=== PATIENT | female | born 1940 | race Caucasian/White ===

== ENCOUNTER → 2017-05-16 | Outpatient (CLI) | payer MEDICARE, BC ==
[2006-06-13 08:55] VITALS: TEMP 97.2
[~2017-05-16] MED LIST: NORCO 325 MG-51 TAB PO; [UNRECOGNIZED DRUG - REMARK]; cholesterol
== END ==
LOC: MC.RAD 13:20
DX: Z12.31 Encounter for screening mammogram for malignant neoplasm of breast (principal)

== ENCOUNTER 2018-05-31 14:45 | Outpatient (RCR) | payer MEDICARE, BC ==
[2006-06-13 08:55] VITALS: TEMP 97.2
== END 2018-06-25 | disposition home or self-care (01) ==
LOC: WSPT
DX: R26.81 Unsteadiness on feet (principal); Z79.82 Long term (current) use of aspirin; Z79.899 Other long term (current) drug therapy
CPT/HCPCS: G8978-GP; G8979-GP

== ENCOUNTER → 2018-06-13 | Outpatient (CLI) | payer MEDICARE, BC ==
[2006-06-13 08:55] VITALS: TEMP 97.2
== END ==
LOC: MC.RAD 11:26
DX: Z12.31 Encounter for screening mammogram for malignant neoplasm of breast (principal)

== ENCOUNTER → 2019-07-05 | Outpatient (CLI) | payer MEDICARE, BC ==
[2006-06-13 08:55] VITALS: TEMP 97.2
== END ==
LOC: MC.RAD 10:35
DX: Z12.31 Encounter for screening mammogram for malignant neoplasm of breast (principal)

== ENCOUNTER → 2020-07-06 | Outpatient (CLI) | payer MEDICARE, BC ==
[2006-06-13 08:55] VITALS: TEMP 97.2
== END ==
LOC: MC.RAD 12:54
DX: Z12.31 Encounter for screening mammogram for malignant neoplasm of breast (principal)

== ENCOUNTER 2020-12-06 12:20 | Emergency (ER) | payer MEDICARE, BC ==
[~2020-12-06] VITALS: Ht 160 cm; Wt 47.7 kg
[~2020-12-06 12:20] MED LIST changes: +ALEVE LIQCAPS PO; +AVAPRO TAB150 MG/TAB PO; +ERGOCALCIFER50000 IU PO; +PROTONIX 40MG T40 MG PO; +TUMS EXTRA STR750 MG PO; +TYLENOL 500MG500 MG PO; +VESICARE 5MG5 MG PO
[2020-12-06 12:34] VITALS: TEMP 97.6
[2020-12-06 13:28] LABS: BASO # 0.1 (0.0-0.2); BASO % 1.3 % (0.0-2.0); EOS % 0.5 % (0-4.0); GRAN # 6.7 (1.4-6.5); GRAN % 78.5 % (42.2-75.2); HEMATOCRIT 39.7 % (37.0-47.0); HEMOGLOBIN 13.5 g/dl (12.5-16.0); LYMPH # 1.2 (1.2-3.4); LYMPH % 13.7 % (20.0-51.0); MEAN CELL VOLUME 84 fl (80.0-100.0); MEAN CORPUSCULAR HEMOGLOBIN 29 pg (27.0-31.0); MEAN CORPUSCULAR HGB CONC 34 g/dl (33.0-37.0); MEAN PLATELET VOLUME 11.2 fl (7.4-10.4); MONO # 0.5 (0.1-0.6); MONO % 5.7 % (1.7-9.3); PLATELET COUNT 294 K/mm3 (130-400); RED BLOOD COUNT 4.71 M/mm3 (4.10-5.30); REDCELL DISTRIBUTION WIDTH-CV 12.4 % (11.5-14.5)
[2020-12-06 13:36] LABS: ALBUMIN 4.6 gm/dL (3.5-5.0); BILIRUBIN,TOTAL 0.8 mg/dL (0.0-1.0); C-REACTIVE PROTEIN 1.2 mg/dL (0.0-0.9); CALCIUM 10.6 mg/dL (8.4-10.2); CREATININE, serum 0.7 (0.52-1.25); POTASSIUM 3.9 mmol/L (3.4-5.0); TOTAL PROTEIN 8.4 gm/dL (6.4-8.2)
[2020-12-06 14:36] LABS: COLLECTION METHOD CLEAN CATCH
[2020-12-06 14:54] LABS: BUDDING YEAST Present /hpf; MUCOUS Present /lpf; PH 8 (5-8); SQUAMOUS EPITHELIAL 0-2 /hpf; URINE APPEARANCE Cloudy; URINE BACTERIA Many /hpf; URINE BILIRUBIN Negative (NEGATIVE); URINE BLOOD Negative (NEGATIVE); URINE COLOR Yellow; URINE GLUCOSE Negative (NEGATIVE); URINE KETONE Trace (NEGATIVE); URINE LEUKOCYTE ESTERASE Negative (NEGATIVE); URINE NITRATE Positive (NEGATIVE); URINE PROTEIN(semi-quant) 1+ (NEGATIVE); URINE RBC 0-2 /hpf; URINE UROBILINOGEN Negative (NEGATIVE)
[2020-12-06] MEDS ORDERED: MACROBID 1100 MG/CAP PO (16:27)
[2020-12-06 16:30] VITALS: BP 122/95; PULSE 96
== END 2020-12-06 17:33 | disposition home or self-care (01) ==
LOC: COL.ER 12:20
PROVIDERS: Family Medicine
DX: N39.0 Urinary tract infection, site not specified (principal); I10 Essential (primary) hypertension; E78.5 Hyperlipidemia, unspecified; K21.9 Gastro-esophageal reflux disease without esophagitis
CPT/HCPCS: J0696; J2405; J7120

== ENCOUNTER 2020-12-07 10:34 | Inpatient (IN) | payer MEDICARE, BC ==
[~2020-12-07] VITALS: Ht 160 cm; Wt 60.2 kg
[~2020-12-07 10:34] MED LIST changes: +MACROBID 1100 MG/CAP PO
[2020-12-07 11:01] LABS: BASO # 0.1 (0.0-0.2); BASO % 0.6 % (0.0-2.0); EOS % 0.1 % (0-4.0); GRAN # 10.2 (1.4-6.5); GRAN % 84.9 % (42.2-75.2); HEMATOCRIT 37.4 % (37.0-47.0); HEMOGLOBIN 12.9 g/dl (12.5-16.0); LYMPH # 1.1 (1.2-3.4); LYMPH % 9.3 % (20.0-51.0); MEAN CELL VOLUME 84 fl (80.0-100.0); MEAN CORPUSCULAR HEMOGLOBIN 29 pg (27.0-31.0); MEAN CORPUSCULAR HGB CONC 35 g/dl (33.0-37.0); MEAN PLATELET VOLUME 11.1 fl (7.4-10.4); MONO # 0.6 (0.1-0.6); MONO % 4.7 % (1.7-9.3); PLATELET COUNT 271 K/mm3 (130-400); RED BLOOD COUNT 4.47 M/mm3 (4.10-5.30); REDCELL DISTRIBUTION WIDTH-CV 12.3 % (11.5-14.5)
[2020-12-07 11:12] LABS: ALBUMIN 4.4 gm/dL (3.5-5.0); BILIRUBIN,TOTAL 1.1 mg/dL (0.0-1.0); C-REACTIVE PROTEIN 1.5 mg/dL (0.0-0.9); CALCIUM 9.8 mg/dL (8.4-10.2); CREATININE, serum 0.62 (0.52-1.25)
[2020-12-07 14:00] VITALS: BP 155/75; PULSE 59; TEMP 98.8
[2020-12-07 15:18] VITALS: BP 139/82; PULSE 80; TEMP 98
[2020-12-07 18:23] LABS: HEMOGLOBIN 11.8 g/dl (12.5-16.0)
[2020-12-07 18:24] LABS: HEMATOCRIT 34.7 % (37.0-47.0)
[2020-12-07 19:47] VITALS: BP 169/70; PULSE 78; TEMP 97.7
--- NOTE | 2020-12-07 21:05 | NUR ---
Resting in bed. Assessment complete. Lungs clear. Heart sounds normal. Bowels active x4. Pulses present throughout. No edema noted. IV left hand pulled on. INT right forearm without complications. Denies pain. Patient alert to self otherwise confused. Incontinent of urine. Cares provided. Denies needs. Call light in reach. Bed alarm in place.
[2020-12-08] VITALS: BP 138/49; PULSE 77; TEMP 98.7
--- NOTE | 2020-12-08 | NUR ---
Resting in bed asleep. Call light in reach.
[2020-12-08 04:00] VITALS: BP 168/67; PULSE 78; TEMP 98.3
--- NOTE | 2020-12-08 04:13 | NUR ---
Resting in bed. Denies needs. Call light in reach.
--- NOTE | 2020-12-08 04:59 | NUR ---
Patient BP elevated in 160s. Hydralazine ordered for 180. Will monitor.
--- NOTE | 2020-12-08 05:18 | NUR ---
Patient had trouble with pulling IVs and telemetry during night. Reorientated. Otherwise uneventful night. Resting in bed this AM. Call light in reach.
--- NOTE | 2020-12-08 07:08 | NUR ---
Report given to FARRUKH Gonzalez
[2020-12-08 07:28] VITALS: BP 146/63; PULSE 82; TEMP 98
[2020-12-08 07:46] LABS: BASO # 0.1 (0.0-0.2); BASO % 1.1 % (0.0-2.0); EOS # 0.2 (0.0-0.7); EOS % 1.8 % (0-4.0); GRAN % 71.5 % (42.2-75.2); HEMOGLOBIN 11.2 g/dl (12.5-16.0); LYMPH # 1.6 (1.2-3.4); LYMPH % 18.4 % (20.0-51.0); MEAN CELL VOLUME 85 fl (80.0-100.0); MEAN CORPUSCULAR HEMOGLOBIN 30 pg (27.0-31.0); MEAN CORPUSCULAR HGB CONC 35 g/dl (33.0-37.0); MEAN PLATELET VOLUME 11.9 fl (7.4-10.4); MONO # 0.6 (0.1-0.6); PLATELET COUNT 220 K/mm3 (130-400); RED BLOOD COUNT 3.78 M/mm3 (4.10-5.30); REDCELL DISTRIBUTION WIDTH-CV 12.4 % (11.5-14.5)
[2020-12-08 08:03] LABS: CALCIUM 8.7 mg/dL (8.4-10.2); CREATININE, serum 0.63 (0.52-1.25); POTASSIUM 3.3 mmol/L (3.4-5.0)
--- NOTE | 2020-12-08 11:10 | NUR ---
Patient alert, confused. See assessment. No c/o at this time.
[2020-12-08 11:54] VITALS: BP 155/72; PULSE 90; TEMP 98.5
--- NOTE | 2020-12-08 14:12 | NUR ---
[employer] contacted patient's , Valeri (ph#[phone]) to complete intake as patient has been confused. Patient lives in [place] with her , Valeri and sees Dr. Ariel Orourke at [facility]. Patient obtains medications from [facility]. Valeri advised patient has had great difficulty with mobility recently and has needed to utilize a wheelchair, which she has at home. Valeri states they also have a walker at home. Valeri advised patient has also not been eating well. Valeri reports that they have an extensive will at home including DPOA-HC, although ANTONIO did not locate copy in EMR. ANTONIO reviewed PT/OT recommendations with Valeri for post acute rehab. Val[facility] as he is good friends with their PODOPEDIATRICIAN, Paul. Valeri did not have a second preference but states he would talk this over with his daughter, who will be in today from [place]. ANTONIO contacted Marilou at [facility] and faxed referral. ANTONIO also contacted JAYME Lopez to request SOFI PCR. ANTONIO received a phone call from Quentin at [facility] and ANTONIO provided an update on discharge plan. Quentin reports that they feel patient needs placement upon discharge. ANTONIO will continue to follow.
[2020-12-08 15:47] VITALS: BP 165/47; PULSE 81; TEMP 98.2
--- NOTE | 2020-12-08 16:50 | NUR ---
Marilou trejo [facility] advised they can accept.
[2020-12-08 19:56] VITALS: BP 177/56; PULSE 64; TEMP 98.5
--- NOTE | 2020-12-08 21:58 | NUR ---
Pt resting in bed. Pt was cleaned and changed. Pt called and wanted an update on pt status. He also called and spoke with his . Pt was given fresh water and a sprite at this time. Pt has her call light within reach and bed is in lowest position.
[2020-12-09 08:00] VITALS: BP 141/62; PULSE 87; TEMP 97.9
--- NOTE | 2020-12-09 09:15 | NUR ---
Initial visit; Patient thanked Liner Machine Operator for looking in on her and keeping her in Liner Machine Operator's prayers.
[2020-12-09 11:47] VITALS: BP 154/56; PULSE 89; TEMP 98
--- NOTE | 2020-12-09 12:34 | NUR ---
PT UP IN RECLINER EATING LUNCH. DENIES NEEDS AT THIS TIME.
[2020-12-09 14:07] VITALS: BP 141/62; PULSE 87; TEMP 97.9
[2020-12-09] MEDS ORDERED: ALEVE LIQCAPS PO (14:07)
[2020-12-09] MEDS ORDERED: OMNICEF 300MG300 MG PO (14:07)
--- NOTE | 2020-12-09 14:50 | NUR ---
The patient's COVID results came back negative. The hospitalist is ready to d/c the patient. ANTONIO notified and faxed updates to Marilou at [facility]. Marilou reports that they are able to accept the patient. The patient is to discharge today, 12/09, to [facility] for a skilled stay. Transportation was scheduled at 1530, via [facility]. ANTONIO informed the patient's RN and the patient's , Valeri, over the phone. They were both agreeable to the time. No additional needs at this time.
--- NOTE | 2020-12-09 15:46 | NUR ---
REPORT TO FRANTZ KELLY.
== END 2020-12-09 15:45 | DRG 689 ==
LOC: COL.ER 10:34 → JCC 12:09
PROVIDERS: Emergency Medicine; ADMIT Hospitalist
DX: N39.0 Urinary tract infection, site not specified (principal); G93.41 Metabolic encephalopathy; K21.9 Gastro-esophageal reflux disease without esophagitis; N32.81 Overactive bladder; E87.6 Hypokalemia; E80.6 Other disorders of bilirubin metabolism; F32.9 Major depressive disorder, single episode, unspecified; Z20.828 Contact with and (suspected) exposure to other viral communicable diseases
CPT/HCPCS: 99222-AI; 99232-AI; 99239; J0696; J1650; J3480; J7030; Q9967

== ENCOUNTER → 2020-12-17 | Outpatient (REF) ==
[~2020-12-17] MED LIST changes: +OMNICEF 300MG300 MG PO
[2020-12-17 13:51] LABS: COLLECTION METHOD CLEAN CATCH
[2020-12-17 13:57] LABS: MUCOUS Present /lpf; PH 5 (5-8); URINE APPEARANCE Hazy; URINE BACTERIA None Seen /hpf; URINE BILIRUBIN Negative (NEGATIVE); URINE BLOOD Negative (NEGATIVE); URINE COLOR Yellow; URINE GLUCOSE Negative (NEGATIVE); URINE KETONE Negative (NEGATIVE); URINE LEUKOCYTE ESTERASE Negative (NEGATIVE); URINE NITRATE Negative (NEGATIVE); URINE PROTEIN(semi-quant) Negative (NEGATIVE); URINE RBC 0-2 /hpf; URINE UROBILINOGEN Negative (NEGATIVE)
== END ==
LOC: ZCOL.LAB 13:23
PROVIDERS: Internal Medicine
DX: N30.00 Acute cystitis without hematuria (principal)

== ENCOUNTER → 2021-08-11 | Outpatient (CLI) | payer MEDICARE, BC | LOC: MC.RAD 11:09 | DX: Z12.31 Encounter for screening mammogram for malignant neoplasm of breast (principal) ==

== ENCOUNTER 2024-07-24 18:03 | Emergency (ER) | payer MEDICARE, BC ==
[~2024-07-24] VITALS: Ht 157.5 cm; Wt 48.6 kg
[2024-07-24 18:10] VITALS: TEMP 97.9
[2024-07-24 18:58] LABS: BASO # 0.1 K/mm3 (0.0-0.2); BASO % 0.8 % (0.0-2.0); EOS % 0.1 % (0.0-4.0); GRAN # 8.4 K/mm3 (1.4-6.5); GRAN % 87.7 % (42.2-75.2); HEMATOCRIT 38.1 % (37.0-47.0); HEMOGLOBIN 12.8 g/dl (12.5-16.0); LYMPH # 0.8 K/mm3 (1.2-3.4); LYMPH % 8.7 % (20.0-51.0); MEAN CELL VOLUME 88 fl (80.0-100.0); MEAN CORPUSCULAR HEMOGLOBIN 30 pg (27-31); MEAN CORPUSCULAR HGB CONC 34 g/dl (33.0-37.0); MEAN PLATELET VOLUME 10.9 fl (7.4-10.4); MONO # 0.2 K/mm3 (0.1-0.6); MONO % 2.4 % (1.7-9.3); PLATELET COUNT 238 K/mm3 (130-400); RED BLOOD COUNT 4.34 M/mm3 (4.10-5.30); REDCELL DISTRIBUTION WIDTH-CV 11.9 % (11.5-14.5)
[2024-07-24 19:17] LABS: ALANINE AMINOTRANSFERASE 8 U/L (0-55); ALKALINE PHOSPHATASE 60 U/L (40-150); ANION GAP 12 mmol/L (7-16); AST,SGOT 18 U/L (5-34); BILIRUBIN,TOTAL 0.7 mg/dL (0.2-1.2); BLOOD UREA NITROGEN 24 mg/dL (10-20); C-REACTIVE PROTEIN 0.19 mg/dL (0.00-0.50); CHLORIDE 108 mEq/L (98-107); CREATININE, serum 0.81 mg/dL (0.57-1.11); GLUCOSE 113 mg/dL (70-99); LIPASE 42 U/L (8-78); POTASSIUM 3.8 mEq/L (3.5-4.5); SODIUM 143 mEq/L (136-145); TOTAL PROTEIN 7.5 g/dl (6.2-8.1)
[2024-07-24 19:29] LABS: TROPONIN-I < 0.010 ng/mL (0.00-0.033)
[2024-07-24] MEDS ORDERED: Ondansetron 4 MG/2 ML VIAL IV ONE (19:30)
[2024-07-24] MEDS ORDERED: NS 1,000 ML IV ONE (19:30)
[2024-07-24 19:38] LABS: COLLECTION METHOD CLEAN CATCH
[2024-07-24 19:47] LABS: URINE APPEARANCE CLEAR (CLEAR/HAZY); URINE BLOOD NEGATIVE (NEGATIVE); URINE COLOR YELLOW (YELLOW); URINE GLUCOSE NEGATIVE (NEGATIVE); URINE KETONE 3+ (NEGATIVE); URINE NITRATE NEGATIVE (NEGATIVE); URINE PROTEIN(semi-quant) 1+ (NEGATIVE)
[2024-07-24 20:40] VITALS: BP 165/82; PULSE 88
[2024-07-24] MEDS ORDERED: Home Ondansetron ODT 4 MG #2 ODT/PACK PO ONE (20:45)
== END 2024-07-24 21:03 | disposition home or self-care (01) ==
LOC: COL.ER 18:03
PROVIDERS: Nurse Practitioner Primary Care
DX: R11.2 Nausea with vomiting, unspecified (principal)
CPT/HCPCS: J7030